=== PATIENT | female | born 1950 | race Caucasian/White ===

== ENCOUNTER 2023-10-04 20:26 | Inpatient (IN) | payer MEDICARE ==
[~2023-10-04] VITALS: Ht 152.4 cm; Wt 83.5 kg
[~2023-10-04 20:26] MED LIST: COLESTID1 GM; LEVOTHROID100 MC1; NORCO 10MG-325MG1 EA PO; Z BUPROPION HCL; Z.0.ASACOL400 MG; Z.0.BENICAR HCT 201; Z.0.BENTYL20 MG; Z.0.BYSTOLIC10 MG; Z.0.CLONAZEPAM0.5 MG PO; Z.0.LEXAPRO10 MG PO; Z.0.OMEPRAZOLE40 MG
[2023-10-04 20:49] LABS: BASOPHILS % 0.1 % (0.0-1.0); EOSINOPHILS # (AUTO) 0.1 (0.0-0.4); EOSINOPHILS % 0.9 % (0.0-6.0); HEMATOCRIT 42.2 % (34.2-44.1); HEMOGLOBIN 13.9 g/dL (12.0-16.0); LYMPHOCYTES # (AUTO) 0.3 (1.0-3.2); LYMPHOCYTES % 3.2 % (18.0-39.1); MEAN CORPUSCULAR HEMOGLOBIN 31.7 pg (28-32); MEAN CORPUSCULAR HGB CONC 32.9 g/dL (31-35); MEAN CORPUSCULAR VOLUME 96.1 fL (81-99); MONOCYTES # (AUTO) 0.4 (0.2-0.8); MONOCYTES % 4.6 % (4.4-11.3); NEUTROPHILS # (AUTO) 8.8 (2.1-6.9); PLATELET COUNT 200 x10e3/uL (140-360); RED BLOOD COUNT 4.39 x10e6/uL (3.6-5.1); RED CELL DISTRIBUTION WIDTH 12.2 % (11.7-14.4); WHITE BLOOD COUNT 9.64 x10e3/uL (4.8-10.8)
[2023-10-04] MEDS: ONDANSETRON HCL INJ 2MG/ML 2ML 2 MG/ML VIAL IV STA (20:51)
[2023-10-04] MEDS: SODIUM CHLORIDE 0.9% 1000ML 1,000 ML IV ONE (20:51)
[2023-10-04] MEDS: Morphine 4mg INJECTION 4 MG/ML INJ IV ONE (20:59)
[2023-10-04 21:08] LABS: ALBUMIN 4.4 g/dL (3.5-5.0); ALBUMIN/GLOBULIN RATIO 1.4 (0.8-2.0); ANION GAP 14.7 mmol/L (8-16); BILIRUBIN,TOTAL 0.9 mg/dL (0.2-1.2); CALCIUM 9.1 mg/dL (8.4-10.2); CREATININE, SERUM 0.88 mg/dL (0.57-1.11); POTASSIUM 3.7 mmol/L (3.5-5.1); TOTAL PROTEIN 7.5 g/dL (6.5-8.1)
[2023-10-04] MEDS ORDERED: IOPAMIDOL 370 MG/ML 100 ML INFUS..BTL INJ ONE (21:24)
[2023-10-04 22:10] LABS: CLARITY,URINE SL CLOUDY (CLEAR); COLOR,URINE YELLOW (YELLOW)
[2023-10-04] MEDS ORDERED: HALOPERIDOL LACTATE 5 MG/ML VIAL ONE (22:10)
[2023-10-04 22:11] LABS: BILIRUBIN,URINE NEGATIVE (NEGATIVE); GLUCOSE, URINE NEGATIVE (NEGATIVE); KETONES,URINE NEGATIVE (NEGATIVE); LEUKOCYTE ESTERASE ,URINE SMALL (NEGATIVE); NITRITE,URINE NEGATIVE (NEGATIVE); PH,URINE 6 (5 - 7); PROTEIN,URINE DIPSTICK NEGATIVE (NEGATIVE); URINE UROBILINOGEN 0.2 mg/dL (0.2 - 1)
[2023-10-04 22:12] LABS: BACTERIA,URINE MANY /HPF; EPITHELIAL CELLS,URINE MODERATE /LPF; RBC,URINE 0-5 /HPF (0-5)
[2023-10-04] MEDS: HALOPERIDOL LACTATE 5 MG/ML VIAL IV ONE (22:50)
[2023-10-05] MEDS ORDERED: METRONIDAZOLE 500MG/NS 100ML IV SCH (00:45)
[2023-10-05] MEDS: SODIUM CHLORIDE 0.9% 1000ML 1,000 ML IV SCH (01:14)
[2023-10-05] MEDS: Morphine 4mg INJECTION 4 MG/ML INJ IV PRN (01:21)
[2023-10-05] MEDS: ONDANSETRON HCL INJ 2MG/ML 2ML 2 MG/ML VIAL IV PRN (01:22)
[2023-10-05 04:17] VITALS: PULSE 91; RESP 20; O2SAT 97
[2023-10-05] MEDS ORDERED: CHOLESTYRAMINE P4 GM PO (07:18)
[2023-10-05] MEDS ORDERED: ATORVASTATIN CA40 MG PO (07:18)
[2023-10-05] MEDS ORDERED: MIRTAZAPINE30 MG PO (07:18)
[2023-10-05] MEDS ORDERED: METOPROLOL TART50 MG PO (07:18)
[2023-10-05] MEDS ORDERED: LISINOPRIL10 MG PO (07:18)
[2023-10-05] MEDS ORDERED: ESTRADIOL42.5 GM TOP (07:18)
[2023-10-05 07:19] VITALS: TEMP 97.8
[2023-10-05 11:06] VITALS: PULSE 87; RESP 16
[2023-10-05 16:00] VITALS: BP 139/78; PULSE 72; RESP 20; TEMP 98.9; O2SAT 95
[2023-10-05] MEDS ORDERED: CALCIUM CARBON500 MG PO (16:35)
[2023-10-05] MEDS ORDERED: PRESERVISION A1 EAC2 PO (16:35)
[2023-10-05] MEDS ORDERED: PANTOPRAZOLE SO40 MG PO (16:35)
[2023-10-05] MEDS ORDERED: VITAMIN D350 MCG PO (16:35)
[2023-10-05 20:00] VITALS: BP 139/79; PULSE 66; RESP 18; TEMP 97.8; O2SAT 96
[2023-10-05] MEDS: MIRTAZAPINE 15 MG TAB PO SCH (21:11)
[2023-10-05] MEDS: CLONAZEPAM 0.5 MG TAB PO PRN (21:17)
[2023-10-06] VITALS (8 sets, daily range): BP systolic 127–159; BP diastolic 65–89; PULSE 61–86; RESP 16–20; TEMP 98.1–98.5; O2SAT 96–98
[2023-10-06] MEDS: METOCLOPRAMIDE HCL 10 MG/2ML VIAL IV SCH (00:09)
[2023-10-06] MEDS: LEVOTHYROXINE SODIUM 100 MCG TAB PO SCH (05:18)
[2023-10-06 06:17] LABS: BASOPHILS % 0.3 % (0.0-1.0); EOSINOPHILS # (AUTO) 0.1 (0.0-0.4); EOSINOPHILS % 3.4 % (0.0-6.0); HEMATOCRIT 35.2 % (34.2-44.1); HEMOGLOBIN 11.4 g/dL (12.0-16.0); LYMPHOCYTES # (AUTO) 0.8 (1.0-3.2); LYMPHOCYTES % 25.7 % (18.0-39.1); MEAN CORPUSCULAR HEMOGLOBIN 32.2 pg (28-32); MEAN CORPUSCULAR HGB CONC 32.4 g/dL (31-35); MEAN CORPUSCULAR VOLUME 99.4 fL (81-99); MONOCYTES # (AUTO) 0.4 (0.2-0.8); MONOCYTES % 12.2 % (4.4-11.3); NEUTROPHILS # (AUTO) 1.9 (2.1-6.9); NEUTROPHILS % 58.1 % (38.7-80.0); PLATELET COUNT 143 x10e3/uL (140-360); RED BLOOD COUNT 3.54 x10e6/uL (3.6-5.1); RED CELL DISTRIBUTION WIDTH 12.9 % (11.7-14.4); WHITE BLOOD COUNT 3.19 x10e3/uL (4.8-10.8)
[2023-10-06 06:38] LABS: ALBUMIN 3.5 g/dL (3.5-5.0); ALBUMIN/GLOBULIN RATIO 1.6 (0.8-2.0); ANION GAP 12.5 mmol/L (8-16); BILIRUBIN,TOTAL 0.9 mg/dL (0.2-1.2); CALCIUM 8.3 mg/dL (8.4-10.2); CREATININE, SERUM 0.77 mg/dL (0.57-1.11); POTASSIUM 3.5 mmol/L (3.5-5.1); TOTAL PROTEIN 5.7 g/dL (6.5-8.1)
[2023-10-06] MEDS: CHOLECALCIFEROL 1,000 UNIT TAB PO SCH (08:59)
[2023-10-06] MEDS: LISINOPRIL 10 MG TAB PO SCH (08:59)
[2023-10-06] MEDS: PANTOPRAZOLE SOD 40 MG TABEC PO SCH (08:59)
[2023-10-06] MEDS: ESCITALOPRAM OXALATE 10 MG TAB PO SCH (09:00)
[2023-10-06] MEDS: METOPROLOL TARTRATE 50 MG TAB PO SCH (09:00)
[2023-10-06] MEDS: ATORVASTATIN 40 MG TAB PO SCH (09:01)
[2023-10-06] MEDS: CLONAZEPAM 0.5 MG TAB PO PRN (21:02)
[2023-10-07] VITALS: BP 153/85; PULSE 76; RESP 18; TEMP 98; O2SAT 94
[2023-10-07] MEDS: DICYCLOMINE HCL 20 MG TAB PO ONE (00:06)
[2023-10-07] MEDS: DIPHENOXYLATE/ATROPINE TAB PO STA (00:06)
[2023-10-07 04:00] VITALS: BP 130/62; PULSE 70; RESP 17; TEMP 98.1; O2SAT 93
[2023-10-07 07:58] VITALS: BP 126/58; PULSE 71; RESP 19; TEMP 97.9; O2SAT 95
[2023-10-07 08:17] LABS: ALANINE AMINOTRANSFERASE 215 IU/L (0-55); ALBUMIN 3.4 g/dL (3.5-5.0); ALBUMIN/GLOBULIN RATIO 1.9 (0.8-2.0); ALKALINE PHOSPHATASE 128 IU/L (40-150); ANION GAP 10.2 mmol/L (8-16); BILIRUBIN,TOTAL 0.8 mg/dL (0.2-1.2); BLOOD UREA NITROGEN < 5 mg/dL (7-26); CARBON DIOXIDE 25 mmol/L (22-29); CHLORIDE 113 mmol/L (98-107); CREATININE, SERUM 0.72 mg/dL (0.57-1.11); EST GLOMERULAR FILTRATION RATE 87 ML/MIN (>=60); GLUCOSE 84 mg/dL (74-118); SODIUM 145 mmol/L (136-145); TOTAL PROTEIN 5.2 g/dL (6.5-8.1)
[2023-10-07 08:19] LABS: BUN/CREATININE RATIO 7 (6-25); POTASSIUM 3.2 mmol/L (3.5-5.1)
[2023-10-07 08:59] LABS: MAGNESIUM 1.8 MG/DL (1.3-2.1); PHOSPHORUS 1.6 MG/DL (2.3-4.7)
[2023-10-07] MEDS: ZINC OXIDE 30 GM TUBE TOP SCH (09:17)
[2023-10-07] MEDS: DICYCLOMINE HCL 20 MG TAB PO SCH (09:17)
[2023-10-07 11:24] VITALS: BP 151/91; PULSE 63; RESP 19; TEMP 98.6; O2SAT 99
[2023-10-07] MEDS: POTASSIUM PHOSPHATE 15 MM in SODIUM CHLORIDE 0.9% 250ML 250 ML IV ONE (13:21)
[2023-10-07] MEDS: POTASSIUM CHLORIDE 10MEQ EA PO ONE ×2 (14:09)
[2023-10-07 15:56] VITALS: BP 133/90; PULSE 68; RESP 19; TEMP 97.9; O2SAT 97
[2023-10-07 16:00] LABS: WBC,FECAL (FECAL LACTOFERRIN) POSITIVE (NEGATIVE)
[2023-10-07 20:00] VITALS: BP 162/88; PULSE 62; RESP 20; TEMP 98.1; O2SAT 94
[2023-10-08] VITALS (10 sets, daily range): BP systolic 154–181; BP diastolic 84–105; PULSE 60–74; RESP 18–21; TEMP 97.8–98.4; O2SAT 96–99
[2023-10-08] MEDS: DIPHENOXYLATE/ATROPINE TAB PO ONE (01:13)
[2023-10-08 05:36] LABS: BASOPHILS % 0.3 % (0.0-1.0); EOSINOPHILS # (AUTO) 0.2 (0.0-0.4); EOSINOPHILS % 5.4 % (0.0-6.0); HEMATOCRIT 34.9 % (34.2-44.1); HEMOGLOBIN 11.3 g/dL (12.0-16.0); LYMPHOCYTES # (AUTO) 0.8 (1.0-3.2); LYMPHOCYTES % 23.2 % (18.0-39.1); MEAN CORPUSCULAR HEMOGLOBIN 31.7 pg (28-32); MEAN CORPUSCULAR HGB CONC 32.4 g/dL (31-35); MEAN CORPUSCULAR VOLUME 97.8 fL (81-99); MONOCYTES # (AUTO) 0.3 (0.2-0.8); MONOCYTES % 7.5 % (4.4-11.3); NEUTROPHILS # (AUTO) 2.1 (2.1-6.9); NEUTROPHILS % 63.3 % (38.7-80.0); PLATELET COUNT 145 x10e3/uL (140-360); RED BLOOD COUNT 3.57 x10e6/uL (3.6-5.1); RED CELL DISTRIBUTION WIDTH 12.3 % (11.7-14.4); WHITE BLOOD COUNT 3.32 x10e3/uL (4.8-10.8)
[2023-10-08 06:05] LABS: BLOOD UREA NITROGEN < 5 mg/dL (7-26); CALCIUM 8.2 mg/dL (8.4-10.2); CARBON DIOXIDE 24 mmol/L (22-29); CHLORIDE 114 mmol/L (98-107); CREATININE, SERUM 0.67 mg/dL (0.57-1.11); EST GLOMERULAR FILTRATION RATE 91 ML/MIN (>=60); GLUCOSE 91 mg/dL (74-118); PHOSPHORUS 2.1 MG/DL (2.3-4.7); SODIUM 145 mmol/L (136-145)
[2023-10-08 06:06] LABS: BUN/CREATININE RATIO 7 (6-25)
[2023-10-08] MEDS: DIPHENOXYLATE/ATROPINE TAB PO SCH (08:34)
[2023-10-08] MEDS: POTASSIUM CHLORIDE 10MEQ EA PO ONE (12:17)
[2023-10-08] MEDS: POTASSIUM PHOSPHATE 15 MM in SODIUM CHLORIDE 0.9% 250ML 250 ML IV ONE (12:19)
[2023-10-08 14:17] LABS: ALBUMIN 3.5 g/dL (3.5-5.0); BILIRUBIN,DIRECT 0.3 mg/dL (0.0-0.5); BILIRUBIN,TOTAL 0.7 mg/dL (0.2-1.2); TOTAL PROTEIN 5.7 g/dL (6.5-8.1)
[2023-10-08] MEDS: HYDRALAZINE HCL 20 MG/ML VIAL IV PRN (15:40)
[2023-10-09] VITALS: BP 140/72; PULSE 66; RESP 20; TEMP 98.1; O2SAT 95
[2023-10-09 04:00] VITALS: BP 164/86; PULSE 70; RESP 20; TEMP 98.7; O2SAT 93
[2023-10-09 05:59] LABS: BASOPHILS % 0.3 % (0.0-1.0); EOSINOPHILS # (AUTO) 0.2 (0.0-0.4); HEMATOCRIT 39.8 % (34.2-44.1); HEMOGLOBIN 12.9 g/dL (12.0-16.0); LYMPHOCYTES % 15.4 % (18.0-39.1); MEAN CORPUSCULAR HEMOGLOBIN 31.3 pg (28-32); MEAN CORPUSCULAR HGB CONC 32.4 g/dL (31-35); MEAN CORPUSCULAR VOLUME 96.6 fL (81-99); MONOCYTES # (AUTO) 0.4 (0.2-0.8); MONOCYTES % 6.4 % (4.4-11.3); NEUTROPHILS # (AUTO) 4.7 (2.1-6.9); NEUTROPHILS % 74.4 % (38.7-80.0); PLATELET COUNT 171 x10e3/uL (140-360); RED BLOOD COUNT 4.12 x10e6/uL (3.6-5.1); RED CELL DISTRIBUTION WIDTH 12.4 % (11.7-14.4); WHITE BLOOD COUNT 6.28 x10e3/uL (4.8-10.8)
[2023-10-09 06:29] LABS: ALANINE AMINOTRANSFERASE 144 IU/L (0-55); ALBUMIN 4.2 g/dL (3.5-5.0); ALBUMIN/GLOBULIN RATIO 1.4 (0.8-2.0); ALKALINE PHOSPHATASE 137 IU/L (40-150); ANION GAP 14.2 mmol/L (8-16); BILIRUBIN,TOTAL 1.2 mg/dL (0.2-1.2); BLOOD UREA NITROGEN < 5 mg/dL (7-26); CALCIUM 9.1 mg/dL (8.4-10.2); CARBON DIOXIDE 25 mmol/L (22-29); CHLORIDE 106 mmol/L (98-107); CHOL/HDL RATIO 2.8 (3.0-3.6); CHOLESTEROL 112 MD/DL (0-199); CREATININE, SERUM 0.78 mg/dL (0.57-1.11); EST GLOMERULAR FILTRATION RATE 79 ML/MIN (>=60); GLUCOSE 98 mg/dL (74-118); HDL CHOLESTEROL 40 MG/DL (40-60); LDL CHOLESTEROL 57 MG/DL (60-130); MAGNESIUM 1.6 MG/DL (1.3-2.1); SODIUM 142 mmol/L (136-145); TOTAL PROTEIN 7.2 g/dL (6.5-8.1); TRIGLYCERIDES 73 MG/DL (0-149)
[2023-10-09 06:31] LABS: POTASSIUM 3.2 mmol/L (3.5-5.1)
[2023-10-09 06:32] LABS: BUN/CREATININE RATIO 6 (6-25)
[2023-10-09 06:54] LABS: FREE T4 (FREE THYROXINE) 1.05 ng/dL (0.8-1.8); THYROID STIMULATING HORMONE 13.493 uIU/mL (0.350-4.940)
[2023-10-09 08:00] VITALS: BP 189/99; PULSE 82; RESP 19; TEMP 97.7; O2SAT 98
[2023-10-09] MEDS: MAGNESIUM SULFATE 2GM/50ML 50 ML IV ONE (08:31)
[2023-10-09] MEDS: MAGNESIUM OXIDE 400 MG TAB PO SCH (08:32)
[2023-10-09] MEDS: LEVOTHYROXINE SODIUM 100 MCG/VIAL IV ONE (08:34)
[2023-10-09 09:00] VITALS: BP 164/86; PULSE 70; RESP 19; TEMP 97.7; O2SAT 98
[2023-10-09] MEDS ORDERED: DICYCLOMINE HCL20 MG PO (09:36)
[2023-10-09] MEDS ORDERED: DIPHENOXYLATE-1 EACH PO (09:36)
[2023-10-09] MEDS ORDERED: ZINC OXIDE56.7 GM TOP (09:36)
[2023-10-09] MEDS: POTASSIUM CHLORIDE 10MEQ EA PO ONE (09:36)
[2023-10-09] MEDS ORDERED: LEVOTHYROXINE112 MCG PO (09:36)
[2023-10-09] MEDS ORDERED: MAG-OXIDE400 MG PO (09:36)
[2023-10-09 12:21] VITALS: BP 182/92
[2023-10-09 16:00] LABS: HEPATITIS B SURFACE AG (P) Non Reactive; HEPATITIS C ANTIBODY Non Reactive
[2023-10-10] MEDS ORDERED: LEVOTHYROXINE SODIUM 112 MCG TAB PO SCH (06:00)
[2023-10-10 07:22] LABS: ENDOMYSIAL ANTIBODIES, IGA Negative (Negative)
[2023-10-10 07:23] LABS: IMMUNOGLOBULIN A 261 mg/dL (64-422); TISSUE TRANSGLUTAMINASE IGA AB <2 U/mL (0-3)
== END 2023-10-09 12:55 | disposition home or self-care (01) | DRG 392 ==
LOC: ER 20:40 → ERHOLD 10-05 00:44 → MED/SURG2 10-05 13:47 → OBSVTOIN 10-07 08:12
PROVIDERS: ADMIT Internal Medicine; ATTEND Internal Medicine
DX: K57.32 Diverticulitis of large intestine without perforation or abscess without bleeding (principal); K58.0 Irritable bowel syndrome with diarrhea; R11.2 Nausea with vomiting, unspecified; K76.0 Fatty (change of) liver, not elsewhere classified; R74.01 Elevation of levels of liver transaminase levels; I10 Essential (primary) hypertension; E03.9 Hypothyroidism, unspecified; E87.6 Hypokalemia; E78.5 Hyperlipidemia, unspecified; E83.39 Other disorders of phosphorus metabolism; E83.42 Hypomagnesemia; K21.9 Gastro-esophageal reflux disease without esophagitis; F41.9 Anxiety disorder, unspecified; F32.A Depression, unspecified; N83.202 Unspecified ovarian cyst, left side; H35.30 Unspecified macular degeneration; R21 Rash and other nonspecific skin eruption; Z11.52 Encounter for screening for COVID-19; Z79.890 Hormone replacement therapy; Z90.49 Acquired absence of other specified parts of digestive tract; Z88.1 Allergy status to other antibiotic agents; Z88.5 Allergy status to narcotic agent; Z88.8 Allergy status to other drugs, medicaments and biological substances
CPT/HCPCS: 36415; 74177; 74181; 80048; 80053; 80061; 80076; 81001; 82270; 82784; 83036; 83516; 83630; 83690; 83735; 83993; 84100; 84439; 84443; 85025; 86256; 87045; 87177; 87324; 87449; 94799; 99284; G0378; J0360; J1630; J2270; J2405; J2470; J2543; J2765; J3475; J7030; J7050; Q9967; U0002